=== PATIENT | female | born 1970 | race Caucasian/White ===

== ENCOUNTER 2021-05-10 22:40 | Emergency (ER) | payer OTHER ==
[~2021-05-10] VITALS: Ht 165.1 cm; Wt 72.6 kg
--- OUTSIDE RECORDS SUMMARY | 2021-05-10 22:42 | XMS ---
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 Jenny has no Care Guidelines for this patient. [place] VISIT COUNT (12 MO.) 1 KELVIN Retana TOTAL 1 NOTE: Visits indicate total known visits. ED/UCC VISIT TRACKING (12 MO.) 05/10/2021 22:41 KELVIN [facility] [place] TYPE: Emergency COMPLAINT: - ARM INJURY INPATIENT VISIT TRACKING (12 MO.) No inpatient visits to display in this time frame [id number]
[2021-05-10] MEDS ORDERED: HYDROCODON-ACE1 EA10 PO (23:40)
== END 2021-05-10 23:55 | disposition home or self-care (01) ==
LOC: ED 22:40
DX: S53.125A Posterior dislocation of left ulnohumeral joint, initial encounter (principal); W01.10XA Fall on same level from slipping, tripping and stumbling with subsequent striking against unspecified object, initial encounter
CPT/HCPCS: 24600; 73070; 73080; 99283-25; J1170; J2405